=== PATIENT | male | born 1955 | race Two or more races ===

== ENCOUNTER 2019-10-14 14:54 | Inpatient (IN) | payer MEDICARE, MEDICAID ==
[~2019-10-14] VITALS: Ht 170.2 cm; Wt 86.2 kg
--- NOTE | 2019-10-14 14:54 | NUR ---
L SIDE ABDOMINAL PAIN RADIATES TO THE BACK X 3-4 DAYS, PT AAOX4, -SOB, NAD NOTED, VSS, PENDING MD KONG
[2019-10-14 15:22] LABS: BASOPHILS # (AUTO) 0.1 /CMM (0.0-0.2); BASOPHILS % (AUTO) 0.5 % (0.0-2.0); EOSINOPHILS % (AUTO) 0.7 % (0.0-6.0); HEMATOCRIT 48 % (39-51); HEMOGLOBIN 15.4 g/dL (13.5-17.5); LYMPHOCYTES # (AUTO) 1.4 /CMM (0.8-4.8); MEAN CORPUSCULAR HGB CONC 32 g/dl (31.0-36.0); MEAN CORPUSCULAR VOLUME 86 fL (80-96); MONOCYTES # (AUTO) 0.6 /CMM (0.1-1.30); MONOCYTES % (AUTO) 5.6 % (2.0-12.0); NEUTROPHILS # (AUTO) 8.9 /CMM (1.8-8.9); NEUTROPHILS % (AUTO) 80.2 % (43.0-81.0); PLATELET COUNT (AUTO) 230 /CMM (150-450); RED BLOOD CELL COUNT(AUTO) 5.58 MIL/uL (4.5-6.0); WHITE BLOOD COUNT (AUTO) 11.1 K/uL (4.3-11.0)
[2019-10-14] MEDS ORDERED: IV NS 0.9% 1,000 ML BAG IV ONE (15:30)
[2019-10-14] MEDS ORDERED: ONDANSETRON HCL/PF 4 MG/2 ML VIAL IVP ONE (15:30)
--- NOTE | 2019-10-14 15:31 | NUR ---
pt to ct at this time.
[2019-10-14 15:35] LABS: ALBUMIN 4.1 g/dL (3.4-5.0); BILIRUBIN,DIRECT 0.1 mg/dL (0.0-0.2); BILIRUBIN,TOTAL 0.4 mg/dL (0.2-1.0); CALCIUM, SERUM 9.3 mg/dL (8.5-10.1); CREATININE 1.3 mg/dL (0.6-1.3); TOTAL PROTEIN, SERUM 7.9 g/dL (6.4-8.2)
--- NOTE | 2019-10-14 15:50 | NUR ---
CALLED OFFICE OF DR ROSAURA MD PAGED
[2019-10-14] MEDS ORDERED: ONDANSETRON HCL/PF 4 MG/2 ML VIAL ONE (15:51)
[2019-10-14] MEDS ORDERED: KETOROLAC TROMETHAMINE 15 MG/ML VIAL ONE (15:53)
[2019-10-14] MEDS ORDERED: HYDROMORPHONE 1 MG/1 ML DISP.SYRIN ONE (15:54)
[2019-10-14] MEDS ORDERED: HYDROMORPHONE 1 MG/1 ML DISP.SYRIN IV ONE (16:00)
[2019-10-14] MEDS ORDERED: KETOROLAC TROMETHAMINE INJ 30 MG/ML VIAL IV ONE (16:00)
[2019-10-14 16:08] LABS: BILIRUBIN,URINE Negative (NEGATIVE); BLOOD, URINE Moderate Ery/uL (NEGATIVE); COLOR,URINE Yellow (YELLOW); KETONES,URINE Negative (NEGATIVE); LEUKOCYTE ESTERASE ,URINE Negative (NEGATIVE); NITRITE, URINE Negative (NEGATIVE); PROTEIN,URINE Negative (NEGATIVE); UGLUCOSE Negative (NEGATIVE); UROBILINOGEN,URINE 0.2 EU/dL (0.2)
[2019-10-14 16:15] LABS: APPEARANCE,URINE SLIGHTLY HAZY (CLEAR)
[2019-10-14 16:23] LABS: BACTERIA,URINE Moderate /HPF (None Seen); RBC,URINE 21-50 /HPF (0-2); SQUAMOUS EPITHELIAL CELL,UR Few /HPF (None Seen)
--- NOTE | 2019-10-14 16:34 | NUR ---
PANEL CALL PLACED
--- NOTE | 2019-10-14 16:53 | NUR ---
PHILOMENA ROBISON ADMITTING IN ROOM
--- NOTE | 2019-10-14 17:01 | NUR ---
CALLED NURSING SUP FOR BEDS, SAYS SHE WILL CALL BACK
[2019-10-14] MEDS ORDERED: ACETAMINOPHEN 325 MG TABLET PO PRN (17:30)
[2019-10-14] MEDS ORDERED: MAGNESIUM HYDROXIDE 30 ML UDC PO PRN (17:30)
[2019-10-14] MEDS ORDERED: HYDROMORPHONE INJ 2 MG/ML DISP.SYRIN IV PRN (17:30)
[2019-10-14] MEDS ORDERED: ONDANSETRON HCL/PF 4 MG/2 ML VIAL IVP PRN (17:30)
[2019-10-14] MEDS ORDERED: TEMAZEPAM 15 MG CAPSULE PO PRN (17:30)
--- NOTE | 2019-10-14 17:32 | NUR ---
REPORT GIVEN TO ISIAH CERON FOR GONZALO PT WILL BE TRANPOSRTED TO 3RD FLOOR
--- NOTE | 2019-10-14 18:58 | NUR ---
PT TRANSPORTED TO 3RD FLOOR
--- NOTE | 2019-10-14 19:00 | NUR ---
MS RN NOTE RECEIVED PT IN STABLE CONDITION A/O X4, CURRENTLY WALKING AROUND IN ROOM. NO SIGNS OF SOB OR DISTRESS NO C/O PAIN OR N/V. IV IN RAC #[address] WITH IVF INFUSING, TOLERATING WELL. ALL CURRENT NEEDS ATTENDED TO. BED LOW, LOCKED, UPPER RAILS UP, AND CALL LIGHT WITHIN REACH. BODY ASSESSED AND BELONGINGS ACCOUNTED AND SIGNED FOR. WILL CONT. TO MONITOR.
[2019-10-14 20:26] VITALS: BP 147/88
[2019-10-15] MEDS: IV NS 0.9% 1,000 ML IV PRN ×2 (04:24→18:59)
[2019-10-15 06:10] LABS: BASOPHILS # (AUTO) 0.1 /CMM (0.0-0.2); BASOPHILS % (AUTO) 1.3 % (0.0-2.0); EOSINOPHILS % (AUTO) 2.7 % (0.0-6.0); HEMATOCRIT 43 % (39-51); HEMOGLOBIN 14.2 g/dL (13.5-17.5); MEAN CORPUSCULAR HGB CONC 33 g/dl (31.0-36.0); MEAN CORPUSCULAR VOLUME 86 fL (80-96); MONOCYTES # (AUTO) 0.5 /CMM (0.1-1.30); MONOCYTES % (AUTO) 4.3 % (2.0-12.0); NEUTROPHILS # (AUTO) 8.5 /CMM (1.8-8.9); NEUTROPHILS % (AUTO) 81.7 % (43.0-81.0); PLATELET COUNT (AUTO) 180 /CMM (150-450); RED BLOOD CELL COUNT(AUTO) 5.05 MIL/uL (4.5-6.0); WHITE BLOOD COUNT (AUTO) 10.4 K/uL (4.3-11.0)
--- NOTE | 2019-10-15 06:13 | NUR ---
MS RN NOTE PT REMAINS IN STABLE CONDITION A/O X4, CURRENTLY RESTING IN BED. NO SIGNS OF SOB OR DISTRESS NO C/O PAIN OR N/V. IV IN R HAND#[address] WITH IVF INFUSING, TOLERATING WELL. PT AWARE OF NPO STATUS. ALL CURRENT NEEDS ATTENDED TO. BED LOW, LOCKED, UPPER RAILS UP, AND CALL LIGHT WITHIN REACH. BODY ASSESSED AND BELONGINGS ACCOUNTED AND SIGNED FOR. WILL CONT. TO MONITOR AND ENDORSE TO NEXT SHIFT FOR GONZALO.
[2019-10-15 06:27] LABS: CALCIUM, SERUM 8.3 mg/dL (8.5-10.1); CREATININE 1.6 mg/dL (0.6-1.3); MAGNESIUM 1.9 mg/dL (1.8-2.4); PHOSPHORUS 3.4 mg/dL (2.5-4.9); POTASSIUM 4.2 mmol/L (3.5-5.1)
--- NOTE | 2019-10-15 07:15 | NUR ---
MS RN OPENING NOTES RECEIVED PT IN BED, AWAKE. A/OX4. PT TOLERATING RA, WITH NO ACUTE RESPIRATORY DISTRESS NOTED. PT DENIES ANY PAIN OR DISCOMFORT AT THIS MOMENT. PT ALSO DENIES CONCERNS OR QUESTIONS. IVF NS AT 100ML/HR TO R HAND G22, INTACT AND FLUID INFUSING WELL. PIV TO RAC G20, FLUSHED WITH NS, INTACT AND OPERATIONAL. PER SEED TESTER NURSE, OR CALLED FOR SCHEDULED SURGERY TODAY BUT PT WASN'T SEEN UROLOGIST YET FOR CONSULT AND PER PT NOBODY EXPLAINED A PROCEDURE YET--RN TO FOLLOW UP. PT KEPT COMFORTABLE IN BED. PT NPO SINCE MIDNIGHT. CALL LIGHT KEPT WITHIN REACH. WILL CONTINUE PLAN OF CARE.
[2019-10-15 08:00] VITALS: BP 147/83
--- NOTE | 2019-10-15 08:40 | NUR ---
MS RN NOTES DR. KAPLAN CAME AND EXPLAINED PROCEDURE TO THE PT AND GAVE VERBAL CONSENT. PT SIGNED WRITTEN CONSENT FOR PROCEDURE AND ANESTHESIA. PER DR KAPLAN PT DOESN'T NEED BT CONSENT, PT, PTT AND CXRAY ORDERED BEFORE PROCEDURE. OR NURSES AWARE AND WRITTEN ON THE CONSENT. PT AWARE OF THE PROCEDURE.
[2019-10-15] MEDS: PANTOPRAZOLE 40 MG VIAL IV SCH (09:00)
--- NOTE | 2019-10-15 09:01 | NUR ---
MS RN NOTES PT LEFT THE UNIT TO OR FOR CYSTOSCOPY PROCEDURE WITH DR KAPLAN. TRANSPORTED VIA BED WITH 2 NURSES ASSIST.
--- NOTE | 2019-10-15 09:16 | NUR ---
MS RN NOTES SCHEDULED PROTONIX IV UNABLE TO GIVE, PT WENT TO PROCEDURE AT THE OR WITH DR KAPLAN.
[2019-10-15] MEDS ORDERED: MIDAZOLAM HCL 2 MG/2ML VIAL ONE (09:19)
[2019-10-15] MEDS ORDERED: IOHEXOL 240MG/ML 50 ML IV ONE (09:55)
[2019-10-15] MEDS ORDERED: HYDROCODONE/APAP 5/325MG 1 EACH TABLET PO PRN (10:30)
[2019-10-15 10:54] LABS: PROSTATE SPECIFIC ANTIGEN SCR 0.44 ng/mL (0.00-4.00); URIC ACID 6.2 mg/dL (2.6-7.2)
--- NOTE | 2019-10-15 11:14 | NUR ---
MS RN NOTE PT CAME BACK FROM OR AT 1100. VITALS TAKEN AND RECORDED. PT TOLERATING RA, WITH NO ACUTE RESPIRATORY DISTRESS. DENIES PAIN AT THIS TIME. SON PRESENT AT BEDSIDE.
[2019-10-15] MEDS: TAMSULOSIN 0.4 MG CAP.SR.24H PO SCH (11:36)
[2019-10-15 12:07] LABS: FREE PSA 0.22 ng/mL (0.00-45)
[2019-10-15 16:00] VITALS: BP 129/74
--- NOTE | 2019-10-15 17:30 | NUR ---
RN NOTE RECEIVED CALL FROM DR KAPLAN. INFORMED PT STILL HAVING HEMATURIA, NO NEW ORDERS AT THIS TIME. CONTINUE TO MONITOR AND POSSIBLE DISCHARGE PT TOMORROW MORNING. WILL ENDORSE TO INCOMING NIGHT NURSE WELL.
--- NOTE | 2019-10-15 18:50 | NUR ---
MS RN CLOSING NOTES PT REMAINS IN BED, AWAKE. A/OX4. PT TOLERATING RA, WITH NO ACUTE RESPIRATORY DISTRESS NOTED. PT DENIES ANY PAIN OR DISCOMFORT AT THIS MOMENT. PT ALSO DENIES CONCERNS OR QUESTIONS. IVF NS AT 100ML/HR TO R HAND G22, INTACT AND FLUID INFUSING WELL. PIV TO RAC G20, FLUSHED WITH NS, INTACT AND OPERATIONAL. ALL NEEDS AND CARE ATTENDED. PT KEPT COMFORTABLE IN BED. CALL LIGHT KEPT WITHIN REACH. PT'S BED IN LOWEST, LOCKED WITH SR X3. WILL ENDORSE TO INCOMING NIGHT NURSE FOR GONZALO.
--- NOTE | 2019-10-15 18:53 | NUR ---
RN NOTES PT HAS CHERRY WITH HEMATURIA. /DR KAPLAN AWARE, ADVISED JUST TO MONITOR. WILL ENDORSE TO ROLL WEIGHER NURSE.
--- NOTE | 2019-10-15 19:10 | NUR ---
MS RN NOTES RECEIVED CALL AGAIN FROM DR KAPLAN. ORDERED TO REMOVE FC IN AM AT 0600. AND COLLECT/SAVE THE URINE AFTER FC REMOVAL MANY TIMES PT FEELS URGE TO PEE. ENDORSE TO NIGHT RN/MINA.
--- NOTE | 2019-10-15 19:30 | NUR ---
MS RN NOTES RECEIVED ON BED A/O X4,WOLOF SPEAKING,UNDERSTAND MONGOLIAN,NS AT 100ML/GR RATE INFUSING WELL VIA IV PUMP ON RIGHT AC.CHERRY CATH IN PLACE DRAINING REDDISH OUTPUT,S/P STENT PLACEMENT,STONE ON THE URETER.DENIES PAIN AT THE MOMENT.ABDOMEN DISTENDED BUT SOFT.CALL LIGHT IN REACH,NEEDS ANTICIPATED.
[2019-10-15 20:02] VITALS: BP 113/66
[2019-10-15 20:08] VITALS: BP 113/66
--- NOTE | 2019-10-16 00:53 | NUR ---
MS RN NOTES STILL WITH REDDISH URINE OUTPUT.DENIES PAIN.ENDORSED TO MELINA CERON FOR GONZALO
--- NOTE | 2019-10-16 01:01 | NUR ---
MS RN RECEIVE PT IN BED A/O X 3, STABLE AND NOT IN DISTRESS, CHERRY CATH IN PLACE DRAINING CLEAR YELLOW URINE AT THIS TIME, SAFETY MEASURES IN PLACE. WILL CONTINUE TO MONITOR.
[2019-10-16] MEDS: IV NS 0.9% 1,000 ML IV PRN (06:03)
[2019-10-16 06:27] LABS: BASOPHILS % (AUTO) 0.1 % (0.0-2.0); EOSINOPHILS % (AUTO) 0.1 % (0.0-6.0); HEMATOCRIT 40 % (39-51); LYMPHOCYTES # (AUTO) 1.5 /CMM (0.8-4.8); LYMPHOCYTES % (AUTO) 11.9 % (20.0-44.0); MEAN CORPUSCULAR HGB CONC 32 g/dl (31.0-36.0); MEAN CORPUSCULAR VOLUME 85 fL (80-96); MONOCYTES # (AUTO) 0.9 /CMM (0.1-1.30); MONOCYTES % (AUTO) 7.2 % (2.0-12.0); NEUTROPHILS # (AUTO) 10.1 /CMM (1.8-8.9); NEUTROPHILS % (AUTO) 80.7 % (43.0-81.0); PLATELET COUNT (AUTO) 189 /CMM (150-450); RED BLOOD CELL COUNT(AUTO) 4.75 MIL/uL (4.5-6.0); WHITE BLOOD COUNT (AUTO) 12.6 K/uL (4.3-11.0)
--- NOTE | 2019-10-16 06:29 | NUR ---
PT ASLEEP AND EASILY AWAKEN, NO S/S OF DISTRESS, STABLE, AM CARE RENDERED. NEEDS ATTENDED AND ANTICIPATED, KEPT CLEAN, DRY AND COMFORTABLE. PERINEAL CARE RENDERED. S/P CHERRY CATH REMOVED. INSTRUCTED PT TO URINATE IN THE URINAL. VERBALIZED UNDERSTANDING. EDUCATED PT. NO C/O PAIN. WILL ENDORSE TO NEXT SHIFT.
[2019-10-16 06:49] LABS: CALCIUM, SERUM 8.5 mg/dL (8.5-10.1); CREATININE 1.1 mg/dL (0.6-1.3); MAGNESIUM 2.1 mg/dL (1.8-2.4); PHOSPHORUS 2.8 mg/dL (2.5-4.9)
--- NOTE | 2019-10-16 07:10 | NUR ---
MS RN OPENING NOTES RECEIVE PT IN BED, AWAKE, A/O X4. PT TOLERATING RA WITH NO ACUTE RESPIRATORY DISTRESS NOTED. PT DENIES ANY PAIN OR DISCOMFORT AT THIS TIME. PT ALSO DENIES ANY CONCERNS OR QUESTIONS WELL. PT AWARE NEED TO KEEP AN EYE AND SAVE URINE TODAY TO MONITOR IF IT CLEARS UP FOR DR. KAPLAN TO COME AND CHECK THIS MORNING. IVF NS AT 100 ML/HR TO RAC G20, INTACT AND FLUID INFUSING WELL. PT KEPT COMFORTABLE. CALL LIGHT KEPT WITHIN REACH. PT'S BED IN LOWEST, LOCKED POSITION WITH SR X3. WILL CONTINUE PLAN OF CARE.
[2019-10-16] MEDS: TAMSULOSIN 0.4 MG CAP.SR.24H PO SCH (08:30)
[2019-10-16] MEDS: PANTOPRAZOLE 40 MG VIAL IV SCH (08:30)
--- NOTE | 2019-10-16 10:30 | NUR ---
MS RN NOTES RECEIVE CALL FROM JESSICA BUCK TO DISCHARGE PT EVEN URINE NOT TOTALLY CLEAR. PT'S URINE AT THIS TIME IS PINKISH RATHER THAN RED IN THE MORNING. HOSPITALIST/MD/SASHA MADE AWARE OF DISCHARGE PLAN. AWAITING FOR RESPONSE. PT MADE AWARE AND SON BED SIDE WITH THE PLAN WELL.
[2019-10-16] MEDS ORDERED: IBUP-1957 PO (11:40)
--- NOTE | 2019-10-16 12:37 | NUR ---
MS RESISTOR WINDER NOTES PT TO DISCHARGE HOME, ACCOMPANIED BY SON. PT A/O X4. PT TOLERATING RA WITH NO ACUTE RESPIRATORY DISTRESS NOTED. PT DENIES ANY PAIN OR DISCOMFORT AT THE TIME OF DISCHARGE. PIV TO RAC AND RIGHT HAND REMOVED AND APPLIED DRY DRESSING. ALL NEEDS AND CARE ATTENDED AND PROVIDED TO PT. DISCHARGE INSTRUCTIONS AND INVENTORY LIST SIGNED BY SON WITH PT CONSENT. PRESCRIPTION/FLOMAX CALLED TO [facility] BY DR. KAPLAN. HOSPITALIST//SASHA AWARE. CN/BECKY AWARE OF DISCHARGE WELL. PT'S VITALS STABLE AND RECORDED. PT AMBULATORY WITH THE SON, PT REFUSED WHEELCHAIR. PT ESCORTED BY PROJECT CONTROLS SCHEDULER TO THE LOBBY. PT LEFT THE UNIT AT 1230.
--- NOTE | 2019-10-16 12:39 | NUR ---
MS RN NOTES PT'S SKIN INTACT, NO PICTURES FILED IN THE CHART.
== END 2019-10-16 12:00 | disposition home or self-care (01) | DRG 661 ==
LOC: ER 15:02 → MED 17:37
PROVIDERS: ADMIT Nurse Practitioner Acute Care; ATTEND Internal Medicine
PROC: 0T768DZ Dilation of Right Ureter with Intraluminal Device, Via Natural or Artificial Opening Endoscopic (ICD-10-PCS; principal; 2019-10-15)
DX: N13.2 Hydronephrosis with renal and ureteral calculous obstruction (principal); R73.9 Hyperglycemia, unspecified; F17.210 Nicotine dependence, cigarettes, uncomplicated; E66.9 Obesity, unspecified; Z68.29 Body mass index [BMI] 29.0-29.9, adult; N17.9 Acute kidney failure, unspecified
CPT/HCPCS: 36415; 74018; 80048-TC; 80061-TC; 80076-TC; 81000-TC; 83735-TC; 84100-TC; 84153-TC; 84154-TC; 84550-TC; 85025-TC; 87081-TC; 87086-TC; A4217; C1769; C2617; C9113; G0378; J0330; J0690; J1100; J1170; J1885; J2250; J2405; J2704; J3490; J7030; Q9966

== ENCOUNTER 2019-12-29 13:47 | Emergency (ER) | payer MEDICARE, OTHER ==
[~2019-12-29] VITALS: Ht 170.2 cm; Wt 90.3 kg
[~2019-12-29 13:47] MED LIST: IBUP-1957 PO
[2019-12-29 13:50] VITALS: BP 129/81
[2019-12-29] MEDS ORDERED: TDAP [DIPH/PERTUSSIS/TET] 0.5 ML VIAL IM ONE ×2 (14:00→14:59)
== END 2019-12-29 15:10 | disposition home or self-care (01) ==
LOC: ER 13:50
DX: S93.491A Sprain of other ligament of right ankle, initial encounter (principal); S80.01XA Contusion of right knee, initial encounter; X50.1XXA Overexertion from prolonged static or awkward postures, initial encounter; Y93.89 Activity, other specified; Y92.89 Other specified places as the place of occurrence of the external cause; Y99.8 Other external cause status
CPT/HCPCS: 73564-TC; 73610-TC; 73630-TC; 90715